=== PATIENT | female | born 1990 | race Caucasian/White ===

== ENCOUNTER 2020-07-27 15:42 | Emergency (ER) | payer OTHER, SELFPAY ==
[2020-07-27 15:50] VITALS: BP 114/78; PULSE 77; RESP 16; TEMP 37.1; O2SAT 100
--- NOTE | 2020-07-27 15:51 | ED.URI ---
HPI - URI/Sore Throat General Chief Complaint: Upper Respiratory Infection Stated Complaint: cough Time Seen by Provider: 07/27/20 15:51 Source: patient and RN notes reviewed Mode of arrival: ambulatory Limitations: no limitations History of Present Illness HPI Narrative: 30-year-old female presents with concern for cough for 1 month. Reports cough is dry, nonproductive. Reports when symptoms started she had rhinorrhea, nasal congestion, the symptoms have resolved. Reports she has had 2 - coronavirus test since her cough started. She reports she has been taking Mucinex, benzoate Perles with no relief. Reports mild sore throat. Denies fever, shortness of breath, chills, sweats, body aches MD elicited complaint: cough Related Data Allergies Allergy/AdvReac Type Severity Reaction Status Date / Time phenazopyridine Allergy Unknown Nausea Verified 07/27/20 15:56 Review of Systems Review of Systems: Narrative: CONSTITUTIONAL: Denies malaise, chills, sweats, or fever. EYES: Denies visual changes, redness, or discharge. ENT: Denies rhinorrhea, congestion, sinus pain, otalgia. Reports hoarseness and sore throat. CARDIOVASCULAR: Denies chest pain, palpitations, or edema. RESPIRATORY: Reports cough. Denies dyspnea. GASTROINTESTINAL: Denies abdominal pain, nausea, vomiting, diarrhea SKIN: Denies rash or itching. MUSCULOSKELETAL: Denies myalgia. NEUROLOGIC: Denies headache. All systems reviewed & are unremarkable except as noted in HPI and below PMFSH Comments At time of signature, agree with nursing past medical, surgical, social and family history. There is no relevant family history pertinent to the presenting complaint Exam Narrative: Exam Narrative: GENERAL: Well-appearing, well-nourished, and in no acute distress. HEAD: Normocephalic EYES: PERRLA, conjunctivae clear ENT: Nares clear, turbinates erythematous, clear discharge. Mucous membranes moist. TM pearly duobse with sharp light reflex bilaterally; no tragal tenderness. Oropharynx erythematous without lesions. Tonsils not enlarged and without exudate, no drooling, no hoarseness, no trismus, uvula midline. NECK: Supple. No lymphadenopathy CHEST: Clear to auscultation, breath sounds equal. No wheezing, rhonchi, rales, or stridor. No respiratory distress, speaks in full sentences. HEART: Regular rate and rhythm. No murmur heard. SKIN: Warm, dry, no rash. NEURO: Alert and oriented x3. PSYCH: Normal mood and affect Course Course Emergency Course: Patient is aware of diagnosis, understands and agrees to treatment plan. Anticipatory guidance given. Patient agrees to follow-up as directed and is aware of reasons to seek care at the emergency department. Portions of this record may have been created with voice recognition software Vital Signs Vital signs: Vital Signs Temperature 98.7 F 07/27/20 15:50 Pulse Rate 77 07/27/20 15:50 Respiratory Rate 16 07/27/20 15:50 Blood Pressure 114/78 07/27/20 15:50 Pulse Oximetry 100 07/27/20 15:50 Temperature 98.7 F 07/27/20 15:50 Pulse Rate 77 07/27/20 15:50 Respiratory Rate 16 07/27/20 15:50 Blood Pressure 114/78 07/27/20 15:50 Pulse Oximetry 100 07/27/20 15:50 Reviewed. MDM - URI/Sore Throat MDM Narrative Medical decision making narrative: Differential diagnosis considered: Lopez virus, strep pharyngitis, allergic rhinitis, upper respiratory tract infection, sinusitis, rhinosinusitis, nasopharyngitis. viral pharyngitis, otitis media, otitis externa, pneumonia, bronchitis, viral cough syndrome, viral syndrome, and influenza. Exam findings show no acute concerns or changes; patient is non-toxic appearing and is in no distress. Patient is appropriate for outpatient treatment and follow-up. Lab Data Attestation: I reviewed the patient's lab results. Critical Care Time Critical Care Time Critical Care Time: No Discharge Plan Discharge Clinical Impression: Cough Patient Disposition: Home, Self-Ca
== END 2020-07-27 16:18 | disposition home or self-care (01) ==
PROVIDERS: Emergency Provider Nurse Practitioner
DX: R05 Cough (principal); F31.9 Bipolar disorder, unspecified; F41.9 Anxiety disorder, unspecified
CPT/HCPCS: 87081; 87880; 99203; G0463

== ENCOUNTER 2021-07-18 09:28 | Emergency (ER) | payer OTHER, SELFPAY ==
[2021-07-18] VITALS (8 sets, daily range): BP systolic 102–120; BP diastolic 65–80; PULSE 74–110; RESP 16; TEMP 35.9; O2SAT 99–100
--- NOTE | ~2021-07-18 | CT_ITS ---
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 TECHNIQUE: Spiral CT of the abdomen and pelvis was performed following intravenous injection of 100 m L Omnipaque 350. Axial, coronal and sagittal images of the abdomen and pelvis were reviewed. The do se-length product (DLP) for this examination was 264.48 mGy-cm. The exposure was tailored according to patient size (auto mA exposure control), and iterative reconstruction (ASIR) was used as additiona l dose reduction technique. There is no prior study for comparison. FINDINGS: Right adrenal calcifications from prior hemorrhage or granulomatous process. Left adrenal g land is unremarkable. Liver, spleen, pancreas also unremarkable. Gallbladder is unremarkable. No b iliary obstruction. Portal and splenic veins are patent. Kidneys enhance symmetrically. There is n o hydronephrosis. The uterus is not identified and has likely been surgically resected. The bladde r is unremarkable. There is no retroperitoneal or pelvic lymphadenopathy. Mildly dilated small bowel without transition point, probably ileus or gastroenteritis. No free int raperitoneal gas. The heart is normal in size. There are no pericardial or pleural effusions. The lung bases are unremarkable. There are no osteoblastic or osteolytic lesions identified. IMPRESSION: Colectomy, with mildly dilated small bowel which could indicate ileus or gastroenteritis. No transition point. Reviewed, dictated and finalized at location A. R HELPER IMPRESSION: Colectomy, with mildly dilated small bowel which could indicate ile us or gastroenteritis. No transition point.
[2021-07-18 10:37] LABS: Basophils Percent Auto 0.6 % (0.2-1.2); Eosinophils Absolute Auto 0.4 K/mm3 (0-0.3); Eosinophils Percent Auto 5.4 % (0-4.4); Hematocrit 37.9 % (37.0-47.0); Hemoglobin 12.5 g/dL (12.0-15.0); Immature Granulocyte Absolute 0.02 K/mm3 (0.00-0.031); Immature Granulocyte Percent A 0.3 % (0-0.5); Lymphocytes Absolute Auto 1.91 K/mm3 (0.9-3.2); Lymphocytes Percent Auto 27.1 % (18.3-44.2); Mean Corpuscular Hemoglobin 29.2 pg (26-34); Mean Corpuscular Volume 88.6 fl (80-100); Mean Platelet Volume 10.1 fl (7.4-10.4); Monocytes Absolute Auto 0.4 K/mm3 (0.1-0.6); Monocytes Percent Auto 5.8 % (2.6-8.5); Neutrophils Absolute Auto 4.3 K/mm3 (1.3-6.7); Neutrophils Percent Auto 60.8 % (45.5-73.1); Platelet Count Result 307 k/mm3 (150-375); Red Blood Count 4.28 M/mm3 (4.2-5.4); Red Cell Distribution Width 12.8 % (11.5-14.5); White Blood Count 7.1 K/mm3 (4.5-10.0)
[2021-07-18 10:50] LABS: Alanine Aminotransferase 19 U/L (4-35); Albumin Level 4.7 g/dL (3.5-5.1); Alkaline Phosphatase 54 U/L (38-126); Anion Gap 8 mmol/L (8-16); Aspartate Amino Transferase 29 U/L (14-36); Bilirubin,Total 0.3 mg/dL (0.2-1.3); Blood Urea Nitrogen 15 mg/dL (7-17); Calcium 9.8 mg/dL (8.4-10.2); Carbon Dioxide 26 mmol/L (22-30); Chloride 100 mmol/L (98-107); Estimated CRCL calculation 69 ml/min; Estimated Glomerular Filt Rate > 60; Glucose 140 mg/dL (65-110); Lipase 64 U/L (23-300); Potassium 4.1 mmol/L (3.4-5.0); Sodium 134 mmol/L (137-145)
[2021-07-18 11:09] LABS: Add Urine Microscopic? YES; Appearance Urine Clear (Clear); Bilirubin Urine Negative (Negative); Blood Urine 1+ (Negative); Color Urine Yellow (Yellow); Glucose Urine UA Negative (Negative); Ketones Urine Negative (Negative); Leukocyte Esterase Ur Negative LEU/UL (Negative); Nitrate Urine Negative (Negative); Protein Urine Negative (Negative); RBC Urine 0-2 /hpf (0-2); Specific Grav Ur 1.015 (1.001-1.035); Squamous Epithelial Cell Urine Occasional /hpf (Few); Urobilinogen Urine Negative mg/dL (<2.0); WBC Urine 0-3 /hpf
[2021-07-18] MEDS: MORPHINE SULFATE (*CRX) 2 MG/ML INJ IV PUSH (13:14)
[2021-07-18] MEDS: ONDANSETRON INJ 4 MG/2 ML VIAL IV PUSH (13:14)
--- NOTE | 2021-07-18 16:05 | PC.NURSE ---
This RN was involved with a critical patient, RN just now available and came to bedside to administer medications to Courtney Gong. Pt not in room, no belongings present, pt's gown lying on the bed. Pt had IV in place previously, no signs of IV in trash/on bed/in room. boot and shoe repairman and provider made aware.
--- NOTE | 2021-07-18 16:29 | ED.GENADULT ---
HPI - General Adult General Chief complaint: Abdominal Pain Stated complaint: Abd Pain Time Seen by Provider: 07/18/21 12:05 Source: patient Mode of arrival: ambulatory Limitations: no limitations History of Present Illness HPI narrative: Patient is a 31-year-old female with chief complaint of left-sided abdominal pain that began at 1:00 this morning. Patient reports she has been taking ibuprofen and Gas-X without relief of her symptoms. Patient reports that on patient had removal of her entire large intestine via Dr. Vlad Tijerina at [facility]. Patient reports that she has been anastomoses. She reports the procedure was performed she has severe constipation for over a decade. Patient states she has had bowel movements daily without any blood or mucus. Patient reports when she has a bowel movement it does not cause improvement in her abdominal pain. She reports that it actually feels as if she has worsening abdominal pain. Patient denies any vomiting or fevers. She denies any sick contacts or other people were sick at her home. Related Data Home Medications Medication Instructions Recorded Confirmed bupropion HCl 150 mg PO DAILY 07/27/20 07/27/20 citalopram 20 mg PO DAILY 07/27/20 07/27/20 clonazepam 0.5 mg PO PRN 07/27/20 07/27/20 lamotrigine [Lamictal] 200 mg PO DAILY 07/27/20 07/27/20 Allergies Allergy/AdvReac Type Severity Reaction Status Date / Time phenazopyridine Allergy Unknown Nausea Verified 07/27/20 15:56 Review of Systems Review of Systems: CONSTITUTIONAL: Denies fever, chills, or sweats. EYES: Denies visual changes, redness, or discharge. ENT: Denies rhinorrhea, congestion, sore throat, or otalgia. CARDIOVASCULAR: Denies chest pain, palpitations, or edema. RESPIRATORY: Denies cough or dyspnea. GASTROINTESTINAL: Reports abdominal pain denies nausea, vomiting, or diarrhea. GENITOURINARY: Denies dysuria or hematuria. SKIN: Denies rash or itching. MUSCULOSKELETAL: Denies back pain, joint pain, or myalgia. NEUROLOGIC: Denies headache, numbness, dizziness, or weakness. PSYCHIATRIC: Denies anxiety or depression. Exam Narrative: GENERAL: Well-appearing, well-nourished, and in no acute distress. HEAD: Normocephalic, atraumatic. EYES: PERRLA and EOMI. CHEST: Clear to auscultation. No respiratory distress. No wheezes rales or rhonchi HEART: Regular rate and rhythm. No murmur heard. Normal peripheral pulses. ABDOMEN: Soft, tender to the left side of abdomen worse around umbilicus area, nondistended, gas bubbling auscultated- active bowel sounds. EXTREMITIES: Normal range of motion. No edema. SKIN: Warm, dry, no rash. NEURO: No focal deficits. Alert and oriented x3. PSYCH: Normal mood and affect. Course Vital Signs Vital signs: Vital Signs Temperature 96.7 F L 07/18/21 10:00 Pulse Rate 110 H 07/18/21 10:00 Respiratory Rate 16 07/18/21 10:00 Blood Pressure 102/65 07/18/21 10:00 Pulse Oximetry 100 07/18/21 10:00 Temperature 96.7 F L 07/18/21 10:00 Pulse Rate 74 07/18/21 13:47 Respiratory Rate 16 07/18/21 10:00 Blood Pressure 120/80 07/18/21 13:30 Pulse Oximetry 100 07/18/21 13:47 Medical Decision Making MDM Narrative Medical decision making narrative: Patient's CT is gastroenteritis versus ileus. Patient appears to have a lot of gas in her colon. Patient is reporting that her pain had improved with morphine but is now returning. Patient is prescribed Bentyl. There is pain delay due to long wait time due to reported patient's and critical correction patients in the emergency department so patient eloped the emergency department before benzo could be given but other measures to help the patient expel gas to see if patient could bowel rest outpatient or see if she is to be admitted.Patient eloped. Differential Diagnosis Differential Diagnosis: Gastroenteritis, ileus, bowel obstruction, diverticulitis Vital Signs Vital Signs: Vital Signs Temperature 96.7 F L 07/18
--- NOTE | 2021-07-18 16:33 | PC.NURSE ---
Spoke to of patient. States she came home - IV is out. Mother in law took IV out. Pt did call back to state her IV was out. States shes very upset that she sat in her room crying for her pain meds. Explained to her that the ER was very busy with critical pt's and apologized that she was waiting. Pt states her headphones - you can keep them . I'm not coming back there ever again
== END 2021-07-18 13:47 | disposition left against medical advice (07) ==
PROVIDERS: Emergency Medicine; Emergency Provider Emergency Medicine
DX: R10.9 Unspecified abdominal pain (principal)
CPT/HCPCS: 36415; 74177; 80053; 81001; 83690; 85025; 96374; 96375; 99284; J2270; J2405; Q9967

== ENCOUNTER → 2022-06-27 16:06 | Outpatient (CLI) | payer OTHER, SELFPAY ==
--- NOTE | ~2022-06-27 | XR_ITS ---
EXAM: XR forearm RT 2V DATE: 06/27/2022 16:20 HISTORY: RIGHT WRIST PAIN . COMPARISON: None available. FINDINGS: Normal mineralization. No fracture or dislocation. No lytic or blastic lesion. Joint space s are maintained. No erosion or periosteal change. Soft tissues within normal limits. IMPRESSION: No acute osseous finding in the right forearm. Reviewed, dictated and finalized at location K. ATIONIST
--- NOTE | ~2022-06-27 | XR_ITS ---
EXAMINATION: XR wrist RT min 3V DATE: 06/27/2022 16:20 INDICATION: Radial sided right wrist pain. TECHNIQUE: 4 views of right wrist were obtained. COMPARISON: Right forearm radiographs 06/27/2022 FINDINGS: Bone alignment is normal. No fracture. Joint spaces are well maintained. IMPRESSION: 1. Normal right wrist. Reviewed, dictated and finalized at location A. WARE DEVELOPMENT ANALYST IMPRESSION: 1. Normal right wrist.
== END ==
DX: M25.531 Pain in right wrist (principal)
CPT/HCPCS: 73090; 73110

== ENCOUNTER 2023-02-12 18:37 | Emergency (ER) | payer OTHER, SELFPAY ==
[2023-02-12 18:48] VITALS: BP 118/72; PULSE 72; RESP 16; TEMP 37.1; O2SAT 100
--- NOTE | 2023-02-12 19:31 | ED.GENADULT ---
HPI - General Adult General Chief complaint: Skin/Abscess/Foreign Body Stated complaint: Rash Time Seen by Provider: 02/12/23 19:31 Source: patient, RN notes reviewed and old records reviewed Mode of arrival: ambulatory Limitations: no limitations History of Present Illness HPI narrative: 32 year old female who presents to [facility] with complaints of rash initially noted one month ago which then started spreading about a week ago to her other arm. 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 Patient reports that she has been applying Vaseline, unscented lotion and has been taking Zyrtec for her symptoms, reports that rash is itchy. MD complaint: rash Onset (ago): month(s) (one month with spreading for the past 1 week) Location: upper extremity (bilateral forearms) Treatments prior to arrival: other (lotions, Vaseline Zyrtec) Related Data Home Medications Medication Instructions Recorded Confirmed bupropion HCl 150 mg 24 hr tablet, 150 mg PO DAILY 07/27/20 07/27/20 extended release citalopram 10 mg tablet 20 mg PO DAILY 07/27/20 07/27/20 clonazepam 0.5 mg tablet 0.5 mg PO PRN anxiety 07/27/20 07/27/20 lamotrigine 200 mg tablet 200 mg PO DAILY 07/27/20 07/27/20 (Lamictal) quetiapine 200 mg tablet,extended mg PO 02/12/23 release 24 hr Allergies Allergy/AdvReac Type Severity Reaction Status Date / Time phenazopyridine AdvReac Unknown Nausea Verified 02/12/23 18:50 Review of Systems Review of Systems: CONSTITUTIONAL: Denies fever, chills, or sweats. CARDIOVASCULAR: Denies chest pain, palpitations, or edema. RESPIRATORY: Denies cough or dyspnea. SKIN: Reports rash to left arm that has now spread to right red raised rash which is itchy MUSCULOSKELETAL: Denies joint pain or myalgia. NEUROLOGIC: Denies headache, numbness, or weakness. All systems reviewed & are unremarkable except as noted in HPI and below PMFSH Past Medical History Medical History (Updated 02/13/23 @ 07:19 by Mini Vazquez NP) Anxiety and depression Bipolar 1 disorder, mixed UTI (urinary tract infection) Surgical History Surgical History (Updated 02/13/23 @ 07:14 by Mini Vazquez NP) H/O: hysterectomy Hx of appendectomy Hx of colectomy Social History Social History (Updated 02/13/23 @ 07:15 by Mini Vazquez NP) Smoking status: Current every day smoker Tobacco type: e-cigarettes/vaping Alcohol intake: unknown Substance use type: does not use Living arrangements: with family Gender identity (if verbalized by the patient): Female Comments At time of signature, agree with nursing past medical, surgical, social and family history. There is no relevant family history pertinent to the presenting complaint Exam Narrative: GENERAL: Well-appearing, well-nourished, and in no acute distress. HEAD: Normocephalic, atraumatic. EYES: PERRLA, conjunctivae clear, and EOMI. ENT: Mucous membranes moist. Oropharynx without edema, erythema or lesions. NECK: Supple. No lymphadenopathy CHEST: Clear to auscultation. No respiratory distress.SAO2 100% on room air HEART: Regular rate and rhythm. SKIN: Warm, dry.? Patches of red raised rash on bilateral forearms, no vesicle formation is itchy NEURO:? Alert and oriented x3. PSYCH: Normal mood and affect Course Course Emergency Course: Patient is aware of diagnosis, understands and agrees to treatment plan.? Anticipatory guidance given.? Patient agrees to follow-up as directed and is aware of reasons to seek care at the emergency department. Portions of this record may have been created with voice recognition software Level of Care: Express Care Visit Vital Signs Vital signs: Vital Signs Temperature 37.1 C 02/12/23 18:48 Pulse Rate 72 02/12/23 18:48 Respiratory Rate 16 02/12/23 18:48 Blood Press
== END 2023-02-12 19:53 | disposition home or self-care (01) ==
PROVIDERS: Emergency Provider Registered Nurse
DX: L25.9 Unspecified contact dermatitis, unspecified cause (principal); F17.290 Nicotine dependence, other tobacco product, uncomplicated; F41.9 Anxiety disorder, unspecified; F31.9 Bipolar disorder, unspecified
CPT/HCPCS: 99213; G0463

== ENCOUNTER 2023-05-24 15:40 | Emergency (ER) | payer OTHER, SELFPAY ==
[2023-05-24 16:02] VITALS: BP 114/82; PULSE 72; RESP 16; TEMP 36.6; O2SAT 100
--- NOTE | 2023-05-24 16:16 | ED.FEMALEGU ---
HPI - Female Genitourinary General Chief complaint: Urogenital-Female Stated complaint: UTI SYMPTOMS Time Seen by Provider: 05/24/23 16:11 Source: patient and RN notes reviewed Mode of arrival: ambulatory Limitations: no limitations History of Present Illness HPI Narrative: Patient presents today complaining of a 2 day history of dysuria, frequency, urgency, and lower abdominal spasms. Denies nausea or vomiting, back pain, fever, chills or sweats, or any additional symptoms. She has been taking azo for her symptoms. Last dose was this morning. No recent antibiotic use. Related Data Home Medications Medication Instructions Recorded Confirmed bupropion HCl 150 mg 24 hr tablet, 150 mg PO DAILY 07/27/20 05/24/23 extended release citalopram 10 mg tablet 20 mg PO DAILY 07/27/20 05/24/23 clonazepam 0.5 mg tablet 0.5 mg PO PRN anxiety 07/27/20 05/24/23 lamotrigine 200 mg tablet 200 mg PO DAILY 07/27/20 05/24/23 (Lamictal) quetiapine 200 mg tablet,extended 200 mg PO DAILY 02/12/23 05/24/23 release 24 hr Allergies Allergy/AdvReac Type Severity Reaction Status Date / Time phenazopyridine AdvReac Unknown Nausea Verified 05/24/23 15:50 Review of Systems Review of Systems: CONSTITUTIONAL: Denies body aches, fever, chills, or sweats. EYES: Denies visual changes, redness, or discharge. ENT: Denies rhinorrhea, congestion, sore throat, or otalgia. CARDIOVASCULAR: Denies chest pain, palpitations, or edema. RESPIRATORY: Denies cough or dyspnea. GASTROINTESTINAL: Denies abdominal pain, nausea, vomiting, or diarrhea. GENITOURINARY: + dysuria, frequency, urgency, abdominal spasms SKIN: Denies rash, itching, or wounds. MUSCULOSKELETAL: Denies back pain, joint pain, or myalgia. NEUROLOGIC: Denies headache, numbness, tingling, or weakness. PSYCH: Denies depression or anxiety. [facility] Past Medical History Medical History Anxiety and depression Bipolar 1 disorder, mixed UTI (urinary tract infection) Surgical History Surgical History H/O: hysterectomy Hx of appendectomy Hx of colectomy Social History Social History Smoking status: Current every day smoker Tobacco type: e-cigarettes/vaping Alcohol intake: unknown Substance use type: does not use Living arrangements: with family Gender identity (if verbalized by the patient): Female Comments At time of signature, I have reviewed and agree with nursing past medical, surgical, social and family history unless otherwise noted. Please see nursing chart for further information. There is no relevant family history pertinent to the presenting complaint Exam Narrative: GENERAL: Well-appearing, well-nourished, and in no acute distress. HEAD: Normocephalic, atraumatic. EYES: EOMI. No redness or drainage. Conjunctivae normal. ENT: Mucous membranes pink and moist. NECK: Normal AROM. CHEST: No respiratory distress. Clear to auscultation. HEART: Regular rate and rhythm. No murmur appreciated. Normal peripheral pulses. ABDOMEN: Soft, nondistended, normal active bowel sounds. Suprapubic tenderness.-CVAT EXTREMITIES: Normal range of motion. No edema. SKIN: Warm, dry, no rash. Capillary refill normal. Normal skin turgor. NEURO: No focal deficits. Alert and oriented x3. Gait steady. PSYCH: Normal affect. No signs of depression or anxiety. Course Course Level of Care: Express Care Visit Vital Signs Vital signs: Vital Signs Temperature 97.8 F 05/24/23 16:02 Pulse Rate 72 05/24/23 16:02 Respiratory Rate 16 05/24/23 16:02 Blood Pressure 114/82 05/24/23 16:02 Pulse Oximetry 100 05/24/23 16:02 Temperature 97.8 F 05/24/23 16:02 Pulse Rate 72 05/24/23 16:02 Respiratory Rate 16 05/24/23 16:02 Blood Pressure 114/82 05/24/23 16:02 Pulse Oxime
== END 2023-05-24 16:23 | disposition home or self-care (01) ==
PROVIDERS: Emergency Provider Nurse Practitioner
DX: N30.01 Acute cystitis with hematuria (principal); F31.9 Bipolar disorder, unspecified; F17.290 Nicotine dependence, other tobacco product, uncomplicated
CPT/HCPCS: 81003; 87086; 87088; 99213; G0463

== ENCOUNTER 2023-09-27 11:28 | Emergency (ER) | payer OTHER, SELFPAY ==
--- NOTE | 2023-09-27 11:30 | ED.UPPEXIN ---
HPI - Extremity Injury (Upper) General Chief Complaint: Extremity Injury, Upper Stated Complaint: Injured Left Shoulder Time Seen by Provider: 09/27/23 11:30 Source: patient Mode of arrival: ambulatory Limitations: no limitations History of Present Illness HPI narrative: Patient is a 33-year-old female who presents with left shoulder pain after slipping in shower she was cleaning and catching herself. Patient states her shoulder is now throbbing and since shooting pain into biceps. Denies hitting shoulder her head. Related Data Allergies Allergy/AdvReac Type Severity Reaction Status Date / Time phenazopyridine AdvReac Unknown Nausea Verified 05/24/23 15:50 Review of Systems Review of Systems: All systems reviewed & are unremarkable except as noted in HPI and below Constitutional: Constitutional: Denies body ache(s), Denies chills, Denies fatigue, Denies fever(s), Denies headache(s), Denies malaise and Denies weakness Eyes: Eyes: Denies blurry vision, Denies irritation and Denies loss of vision ENT: Denies otalgia, Denies headache(s), Denies nasal discharge, Denies sinus pain and Denies sore throat Cardiovascular: Cardiovascular: Denies chest pain, Denies irregular heart rhythm and Denies dyspnea Respiratory: Respiratory: Denies dyspnea Gastrointestinal: Gastrointestinal: Denies abdominal pain, Denies melena, Denies hematochezia, Denies diarrhea, Denies nausea and Denies vomiting Musculoskeletal: Musculoskeletal: Denies back pain, Denies myalgias and Denies arthralgias Integumentary/Breasts: Skin/Breast: Denies pruritus and Denies rash Neurologic: Denies headache(s), Denies loss of vision and Denies weakness Psychiatric: Psychiatric: Reports no additional psychiatric complaints Endocrine: Endocrine: Denies fatigue PMFSH Past Medical History Medical History Anxiety and depression Bipolar 1 disorder, mixed UTI (urinary tract infection) Surgical History Surgical History H/O: hysterectomy Hx of appendectomy Hx of colectomy Social History Social History Smoking status: Current every day smoker Tobacco type: e-cigarettes/vaping Alcohol intake: unknown Substance use type: does not use Living arrangements: with family Gender identity (if verbalized by the patient): Female Comments At time of signature, agree with nursing past medical, surgical, social and family history. There is no relevant family history pertinent to the presenting complaint. Exam Const: General: cooperative, healthy appearing, comfortable, no acute distress and well nourished Nutritional Appearance: well nourished Orientation/consciousness: patient oriented x3 Limitations: no limitations HENMT: Head: normal to inspection, normocephalic and atraumatic Ears: hearing grossly normal bilaterally and external ears normal Face/Nose/Sinus: Normal external nose present, normal facial exam and face symmetric Face and sinus: normal facial exam and face symmetric Mouth: Yes lip normal Eyes: General: appearance normal, both eyes and all related structures Alignment and Position: alignment normal and position normal Periorbital: periorbital findings normal Eyelids: eyelids normal Pupils: Equal, round and reactive pupils present EOM: EOMs intact bilaterally Neck: Neck: normal visual inspection, full ROM and supple Chest: Chest palpation & inspection: normal inspection of the chest Resp: Effort & Inspection: normal respiratory effort and able to speak in complete sentences Auscultation: clear to auscultation bilaterally Cardio: Rate: regular rate Rhythm: regular rhythm Heart sounds: S1 normal heart sound present and S2 normal heart sound present GI: Inspection: normal to inspection Skin: General skin exam: normal color and no rashes or lesions noted
[2023-09-27 11:47] VITALS: BP 105/86; PULSE 76; RESP 16; TEMP 36.9; O2SAT 100
== END 2023-09-27 13:10 | disposition home or self-care (01) ==
PROVIDERS: Emergency Provider Nurse Practitioner Family
DX: M75.52 Bursitis of left shoulder (principal); S46.912A Strain of unspecified muscle, fascia and tendon at shoulder and upper arm level, left arm, initial encounter; W18.40XA Slipping, tripping and stumbling without falling, unspecified, initial encounter; F17.290 Nicotine dependence, other tobacco product, uncomplicated
CPT/HCPCS: 99213; A4565; G0463

== ENCOUNTER 2024-12-13 14:36 | Emergency (ER) | payer OTHER, SELFPAY ==
[2024-12-13 14:45] VITALS: BP 111/68; PULSE 87; RESP 16; TEMP 37; O2SAT 98
--- NOTE | 2024-12-13 15:07 | ED.WOUNDLAC ---
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 She has been taking OTC pain medication, with some relief. She denies any numbness, tingling, or radiation of pain. Related Data Home Medications ?Medication ?Instructions ?Recorded ?Confirmed ?Last Taken ?Type celecoxib 200 mg capsule mg 12/13/24 Unknown History tramadol 50 mg tablet mg 12/13/24 Unknown History Allergies Allergy/AdvReac Type Severity Reaction Status Date / Time gabapentin AdvReac Intermediate mood Verified 12/13/24 15:11 phenazopyridine AdvReac Unknown Nausea Verified 12/13/24 15:11 Review of Systems Review of Systems: CONSTITUTIONAL: Denies body aches, fever, chills, or sweats. EYES: Denies visual changes, redness, or discharge. ENT: Denies rhinorrhea, congestion CARDIOVASCULAR: Denies chest pain, palpitations, or edema. RESPIRATORY: Denies cough or dyspnea. GASTROINTESTINAL: Denies abdominal pain, nausea, vomiting, or diarrhea. SKIN: ?Reports a laceration to her left second digit. MUSCULOSKELETAL: Denies back pain, joint pain, or myalgia. NEUROLOGIC: Denies headache, numbness, tingling, or weakness. All systems reviewed & are unremarkable except as noted in HPI and below PMFSH Past Medical History Medical History Anxiety and depression Bipolar 1 disorder, mixed UTI (urinary tract infection) Surgical History Surgical History H/O: hysterectomy Hx of appendectomy Hx of colectomy Social History Social History Smoking status: Current every day smoker Tobacco type: e-cigarettes/vaping Alcohol intake: unknown Substance use type: does not use Living arrangements: with family Gender identity (if verbalized by the patient): Female Comments At time of signature, I have reviewed and agree with nursing past medical, surgical, social and family history unless otherwise noted. Please see nursing chart for further information. There is no relevant family history pertinent to the presenting complaint. Exam Narrative: GENERAL: Well-appearing HEAD: Normocephalic, atraumatic. EYES: ?conjunctivae clear, and EOMI. ENT: Mucous membranes moist. Oropharynx without edema, erythema or lesions. NECK: Supple. No lymphadenopathy CHEST: Clear to auscultation. HEART: Regular rate and rhythm. SKIN: Warm, dry. ?1.5 cm laceration to her left 2nd digit middle phalanx. CMS intact. NEURO: ?Alert and oriented x3.? Course Course Level of Care: Express Care Visit Vital Signs Vital signs: Vital Signs Temperature 98.6 F 12/13/24 14:45 Pulse Rate 87 12/13/24 14:45 Respiratory Rate 16 12/13/24 14:45 Blood Pressure 111/68 12/13/24 14:45 Pulse Oximetry 98 12/13/24 14:45 Temperature 98.6 F 12/13/24 14:45 Pulse Rate 87 12/13/24 14:45 Respiratory Rate 16 12/13/24 14:45 Blood Pressure 111/68 12/13/24 14:45 Pulse Oximetry 98 12/13/24 14:45 Reviewed. Procedures Laceration 2nd digit left hand. : Date: 12/13/24 Description: linear Depth: simple, single layer ====== Skin Level ====== Skin layer closed with: dermabond and steri strips ====== Subcutaneous Layer ====== ====== Muscle Layer ====== ====== Tendon Layer ====== Dressing: The procedure and its alternatives were reviewed with patient. Risks were reviewed with patient including infection and damage to nearby structures. Patient provided verbal informed consent. The patient was positioned appropriately. Sterile drapes applied to maintain sterile field. Wound was explored for abnormalities including infection and foreign bodies. Steri strips and derma lawler placed with wound edges approximated. Patient tolerated well, no complications. Dressing applied per RN. MDM - Wound/Laceration MDM Narrative Medical decision making narrative: Discussed physical exam findings. Steri strips and Dermabond applied. Metal finger splint applied. Advised supportive measures and signs/symptoms to go to the ER. Pt is appropriate for outpatient treatment and follow up. Differential Diagnosis Differential diagnosis: Likely laceration Critical Care Time Critical Care Time Critical Care Time: No Discharge Plan Discharge Clinical Impression: Laceration Patient Disposition: Home Condition: Stable Instructions: Antibiotic Form, Laceration (DC) Additional Instructions: The glue film will fall off in 5 to 10 days. Steri-Strips will roll off on their own within 14 days. Do not soak your wound. Avoid frequent or prolonged contact with water, including heavy perspiration. This may loosen the skin glue before the wound is healed. Keep the area clean and dry - cleanse with warm water and mild soap and allow to fully dry. Watch for worsening symptoms including pain, redness, swelling, streaking, pus/drainage, fever. Go to the ER with any of these symptoms or concerns. Follow up with primary care provider in 1 week as needed. Patient Language: Japanese Prescriptions: New cephalexin 500 mg capsule 500 mg PO Q12H 5 Days Qty: 10 0RF No Action prednisone 20 mg tablet 40 mg PO DAILY 5 Days Qty: 10 0RF lidocaine 5 % adhesive patch,medicated 1 patch topical DAILY Qty: 15 0RF Rx Instructions: leave on most painful area for up to 12 hrs celecoxib 200 mg capsule tramadol 50 mg tablet Follow-up/Referrals: PHYSICIAN,KNITTED GARMENT FINISHER [Primary Care Provider] - Time of Disposition: 15:11
== END 2024-12-13 15:33 | disposition home or self-care (01) ==
DX: S61.211A Laceration without foreign body of left index finger without damage to nail, initial encounter (principal); W45.8XXA Other foreign body or object entering through skin, initial encounter; F17.290 Nicotine dependence, other tobacco product, uncomplicated
CPT/HCPCS: 12001; 99213; G0463